=== PATIENT | female | born 1985 ===

== ENCOUNTER 2022-03-26 21:26 | Emergency (ER) | payer OTHER ==
[~2022-03-26] VITALS: Ht 155 cm; Wt 70.0 kg
[2022-03-26 21:32] VITALS: BP 117/68
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
== END 2022-03-26 22:29 | disposition home or self-care (01) ==
LOC: ER 21:28
DX: T23.132A Burn of first degree of multiple left fingers (nail), not including thumb, initial encounter (principal); Z28.310 Unvaccinated for COVID-19; X11.8XXA Contact with other hot tap-water, initial encounter
CPT/HCPCS: 99282